=== PATIENT | female | born 1965 | race Caucasian/White ===

== ENCOUNTER 2017-07-21 08:32 | Outpatient (CLI) | payer BC | END 2017-07-21 08:33 | disposition home or self-care (01) | LOC: BICULT 08:32 | PROVIDERS: ATTEND Family Medicine | DX: R79.89 Other specified abnormal findings of blood chemistry (principal); K76.0 Fatty (change of) liver, not elsewhere classified | CPT/HCPCS: 76700 ==

== ENCOUNTER 2019-05-21 08:58 | Observation (INO) | payer BC ==
[2019-05-21] MEDS ORDERED: Ondansetron PF 4 MG/2 ML Vial ONE (10:01)
[2019-05-21] MEDS ORDERED: Morphine 4 MG/ML VIAL ONE ×3 (10:01→15:00)
[2019-05-21] MEDS ORDERED: Ketorolac Tromethamine 30 MG/ML VIAL ONE (10:01)
[2019-05-21] MEDS ORDERED: Diazepam 10 MG/2 ML SYRINGE ONE (10:05)
--- NOTE | 2019-05-21 10:31 | CT ---
CT BRAIN WITHOUT CONTRAST: HISTORY: Left-sided neck pain and spasms radiating to the head FINDINGS: No evidence of acute infarct, hemorrhage, midline shift or abnormal extra-axial fluid collections is seen. The ventricular size is appropriate and the basilar cisterns are patent. The bony calvarium is intact. There is mucosal disease in the paranasal sinuses. IMPRESSION: No CT evidence of acute intracranial process.
[2019-05-21] MEDS ORDERED: diphenhydrAMINE 50 MG/ML VIAL ONE (11:43)
[2019-05-21] MEDS ORDERED: Metoclopramide HCl 10 MG/2 ML VIAL ONE (11:43)
[2019-05-21 12:34] LABS: #Basophils 0.1 thou/uL (0.0-0.2); #Eosinphils 0.2 thou/uL (0.0-0.7); #Monocytes 0.9 thou/uL (0.11-0.59); #Neutrophils 8.4 thou/uL (1.40-6.50); %Basophils 0.7 % (0.0-1.0); %Eosinophils 1.8 % (0.0-10.0); %Lymphocytes 24.1 % (21.0-51.0); %Monocytes 7.1 % (0.0-10.0); %Neutrophils 66.3 % (42.0-75.0); Hemoglobin 14.7 g/dL (12.0-16.0); Mean Corpuscular HGB CONC 35.3 g/dL (32.0-36.0); Mean Corpuscular Volume 96.4 fL (78.0-98.0); Mean Platelet Volume 7.2 fL (7.4-10.4); Platelet Count 363 thou/uL (130-400); RBC Distribution Width 11.4 % (11.5-14.5); Red Blood Cell (RBC) Count 4.32 mill/uL (4.20-5.40); White Blood Cell (WBC) Count 12.6 thou/uL (4.8-10.8)
[2019-05-21] MEDS ORDERED: Indomethacin 75 mg SR Capsule PO SCH (13:15)
[2019-05-21 13:19] LABS: ALT (SGPT) 38 U/L (8-55); AST (SGOT) 48 U/L (5-34); Albumin 4.1 g/dL (3.5-5.0); Alkaline Phosphatase 104 U/L (40-110); Anion Gap 10 mmol/L (10-20); BUN (Urea Nitrogen) 12 mg/dL (9.8-20.1); Bilirubin, Total 0.3 mg/dL (0.2-1.2); Calc. Creatinine Clearance 0 mL/min (70-130); Carbon Dioxide 31 mmol/L (22-29); Chloride 101 mmol/L (98-107); Estimated GFR-MDRD 83; Globulin 2.9 g/dL (2.4-3.5); Glucose 99 mg/dL (70-105); Sodium 139 mmol/L (136-145)
--- NOTE | 2019-05-21 13:26 | CT ---
CT BRAIN WITH CONTRAST: CTA BRAIN WITH AND WITHOUT CONTRAST: CTA NECK WITH CONTRAST: INDICATION: Left sided neck pain, spasm radiating into the head. Symptoms started yesterday. COMPARISON: None. FINDINGS: CT BRAIN Hemorrhage: None. [place]/Infarction: None. Midline Shift: None. Hydrocephalus: None. Skull and Extracranial Soft tissues: Normal. CTA BRAIN Right ICA: Patent. Right MCA: Patent. Right VY: Patent. ACOM: Patent. Left ICA: Patent. Left MCA: Patent. Left VY: Patent. PCOM: Patent. Vertebral arteries: Patent. Basilar Artery: Patent. dehairer: Patent. Incidentals: None. CTA NECK Right CCA: Minimal atherosclerosis in the carotid bifurcation and proximal internal carotid artery. Medial deviation of the common carotid artery causing mass effect upon the supraglottic larynx. Right ICA: Patent. Right Subclavian: Patent. Right Vertebral Artery: Patent. Left CCA: Atherosclerotic plaque in the distal common carotid artery, carotid bifurcation and proxim al internal carotid artery. Left ICA: Patent. Left Subclavian: Patent. Left Vertebral Artery: Patent. Aerodigestive tract: Clear. Parotids/Submandibular/Thyroid glands: Normal. Lymph nodes: No pathologically enlarged lymph nodes. Lung Apices: Patchy ground glass opacities. Bones: No acute osseous abnormality. Incidentals: None. IMPRESSION: No hemodynamically significant stenosis, occlusion or aneurysmal formation. Transcribed Date/Time: 05/21/2019 1:35 PM
[2019-05-21] MEDS ORDERED: Iopamidol-370 76% 500 ML 1 ML ONE (13:48)
[2019-05-21] MEDS ORDERED: Acetaminophen 325 MG TAB PO PRN ×2 (17:13→18:29)
[2019-05-21] MEDS ORDERED: HYDROcodone/Acetaminophen 5/325 mg Tablet PO PRN (17:13)
[2019-05-21] MEDS ORDERED: Morphine 4 MG/ML VIAL SLOW IVP PRN (17:13)
[2019-05-21] MEDS ORDERED: Ondansetron PF 4 MG/2 ML Vial IVP PRN ×2 (17:13→18:29)
[2019-05-21] MEDS ORDERED: Ondansetron ODT 4 MG TAB SL PRN (17:13)
[2019-05-21] MEDS ORDERED: Sodium Chloride 0.9% 1,000 ML IV SCH (17:13)
[2019-05-21 17:26] VITALS: BMI 30.2
[2019-05-21] MEDS: HYDROcodone/Acetaminophen 5/325 mg Tablet PO PRN ×2 (17:40→22:40)
[2019-05-21] MEDS ORDERED: Potassium Chloride 20 MEQ TAB PO SCH (18:15)
[2019-05-21] MEDS ORDERED: Lorazepam 1 MG TAB PO PRN (18:27)
[2019-05-21] MEDS ORDERED: Ondansetron ODT 4 MG TAB PO PRN (18:29)
[2019-05-21] MEDS ORDERED: Acetaminophen 650 MG Suppository PR PRN (18:29)
[2019-05-21] MEDS ORDERED: Nicotine 14 MG PATCH TD SCH (18:30)
[2019-05-21] MEDS ORDERED: Morphine 2 MG/ML SYRINGE SLOW IVP SCH (18:30)
[2019-05-21] MEDS: Sodium Chloride 0.9% 1,000 ML IV SCH (18:55)
[2019-05-21] MEDS ORDERED: Fioricet 325/50/40 mg Tablet PO SCH (19:15)
[2019-05-21 19:19] LABS: #Basophils 0.1 thou/uL (0.0-0.2); #Eosinphils 0.2 thou/uL (0.0-0.7); #Lymphocytes 3.3 thou/uL (1.20-3.40); #Monocytes 0.8 thou/uL (0.11-0.59); #Neutrophils 7.8 thou/uL (1.40-6.50); %Basophils 0.5 % (0.0-1.0); %Eosinophils 1.5 % (0.0-10.0); %Lymphocytes 27.4 % (21.0-51.0); %Monocytes 6.2 % (0.0-10.0); %Neutrophils 64.5 % (42.0-75.0); Hemoglobin 14.5 g/dL (12.0-16.0); Mean Corpuscular HGB CONC 35.2 g/dL (32.0-36.0); Mean Corpuscular Hemoglobin 33.6 pg (27.0-31.0); Mean Corpuscular Volume 95.6 fL (78.0-98.0); Mean Platelet Volume 7.2 fL (7.4-10.4); Platelet Count 367 thou/uL (130-400); RBC Distribution Width 11.4 % (11.5-14.5); Red Blood Cell (RBC) Count 4.32 mill/uL (4.20-5.40); White Blood Cell (WBC) Count 12.1 thou/uL (4.8-10.8)
[2019-05-21 19:39] LABS: Lactic Acid 2.6 mmol/L (0.5-2.2)
[2019-05-21 19:42] LABS: Alcohol Less than 10 mg/dL (Less than 10); Anion Gap 14 mmol/L (10-20); BUN (Urea Nitrogen) 12 mg/dL (9.8-20.1); Calc. Creatinine Clearance 117 mL/min (70-130); Calcium 9.2 mg/dL (7.8-10.44); Carbon Dioxide 27 mmol/L (22-29); Chloride 101 mmol/L (98-107); Estimated GFR-MDRD 80; Glucose 232 mg/dL (70-105); Sodium 139 mmol/L (136-145)
[2019-05-21] MEDS: Famotidine/PF 20 mg/2ml Vial SLOW IVP SCH (20:12)
[2019-05-21 21:04] LABS: Bilirubin Negative (Negative); Blood, Urine Negative (Negative); Clarity Clear (Clear); Glucose, Urine (Dipstick) Normal (Negative); Leukocyte Negative Leu/uL (Negative); Nitrite Negative (Negative); Protein, Urine (Dipstick) 10 mg/dL (Neg-Trace); Urobilinogen Normal mg/dL (Less than 2)
[2019-05-21 21:10] LABS: Amphetamine Not Detected (NotDetected); Barbiturates Screen Not Detected (NotDetected); Benzodiazepine Screen Detected (NotDetected); Cocaine Metabolite Screen Not Detected (NotDetected); Medtox Control Line Valid? VALID (VALID); Medtox Reader # READER 4; Methadone Not Detected (NotDetected); Methamphetamine Not Detected (NotDetected); Opiate Screen Detected (NotDetected); Oxycodone Screen Not Detected (NotDetected); Phencyclidine (PCP) Not Detected (NotDetected); THC/Cannabinoid Screen Not Detected (NotDetected); Tricyclic Screen Not Detected (NotDetected)
[2019-05-21 21:14] LABS: Bacteria/HPF None Seen HPF (None Seen)
[2019-05-21 21:15] LABS: RBC/HPF 0-3 HPF (0-3); Squamous Epithelial 0-3 HPF (0-3); WBC/HPF 0-3 HPF (0-3)
[2019-05-21 21:17] LABS: Urine Culture Reflex No No
--- NOTE | 2019-05-22 01:18 | HP ---
TIME OF ASSESSMENT: 1800 hours. CHIEF COMPLAINT: Left-sided headache. HISTORY OF PRESENT ILLNESS: Ms. Porras is a 53-year-old woman who presents with complaints of severe intermittent headaches lasting seconds at this time since yesterday evening. The patient states she did not have any trauma or injuries and the pain started suddenly, described as "ice pick going through the left side of my head." The patient states that the pain comes on out of nowhere and the longest that has stayed away for today is 30 minutes after she was given morphine in the emergency department. She denies any associated vision changes or speech disturbances. Denies any extremity numbness or weakness. No associated nausea or vomiting. Again, denies any trauma or injuries. Has not experienced any pain like this before and denies any history of migraines. In the emergency department, she had a CT of the head, which showed no acute intracranial process. CT angiogram of the head and neck was done as well, demonstrating no hemodynamically significant stenosis, occlusion, or aneurysmal formation. She was treated with multiple medications in the ER. She received a total of 10 mg of morphine. She was given 75 mg of indomethacin, 10 mg of IV Reglan, 25 mg of IV Benadryl, 30 mg of IV Toradol, 5 mg of IV Valium, and 4 mg of IV Zofran. The patient also given 1 L of normal saline. She had laboratory studiesdone, which showed a white count of 12.6, hemoglobin 14.7, hematocrit 41.7, platelets 363. Renal function unremarkable. Potassium slightly low at 3.0, total bilirubin 0.3, AST 48, ALT 38, albumin 4.1. The patient continues with significant pain. She has had strokes in the past, therefore admitted for further workup and management. The patient reports having sinus pressure last week on and Monday and reports having low-grade temps of 100.1 on and Monday. Has not had any further fever since then. Reports clear drainage from her nose. PAST MEDICAL HISTORY: 1. Stroke x2 in 2013. 2. Nephrolithiasis. 3. Hypertension. 4. Excess alcohol. 5. Tobacco use. PAST SURGICAL HISTORY: Laparoscopic oophorectomy. SOCIAL HISTORY: The patient smokes one pack per day and has been smoking for 30 years. Reports drinking 2-3 glasses of vodka every other day. Denies any history of withdrawal symptoms including seizures. ALLERGIES: NO KNOWN DRUG ALLERGIES. CURRENT MEDICATIONS: 1. Amlodipine. 2. Hydrochlorothiazide. 3. Metoprolol tartrate. PHYSICAL EXAMINATION: GENERAL: The patient appears well developed, well nourished, and is in obvious discomfort. She continues to have sharp pains during her assessment. Her pain appeared to be less frequent when distracted by neuro exam. VITAL SIGNS: Temperature 98.2, pulse 68, respirations 16, O2 saturation 94% on room air, blood pressure 145/90. HEENT: Normocephalic and atraumatic. Pupils are equal, round, and reactive to light. Sclerae without icterus. Extraocular movements intact. Visual raya intact. Oropharynx is clear. She did have some left-sided TMJ discomfort with palpation. Able to open and close her jaw without difficulty. No scalp or temporal region tenderness. No maxillary or frontal sinus tenderness or discomfort on palpation. NECK: Supple. No tenderness to palpation. Full range of motion. LUNGS: Clear to auscultation bilaterally without wheezes, rales, or rhonchi. CARDIAC: Regular rate and rhythm without audible murmurs, rubs, or gallops. ABDOMEN: Soft, nontender, nondistended. Normoactive bowel sounds present. EXTREMITIES: No lower leg swelling or edema. Peripheral pulses are present and equal bilaterally. SKIN: Normal, warm and dry. NEUROLOGIC: Alert and oriented x3. Speech is normal. Facial movements normal. Power 5/5 in all limbs. Sensation intact. No neuro deficits. INVESTIGATIONS: As mentioned above in HPI. IMPRESSION AND PLAN: Ms. Porras is a very pleasant 53-year-old woman presenting with severe intermittent sharp left-sided headaches, admitted for management of the following. 1. Severe headache. CT imaging unremarkable. The patient has been seen discussed and seen by Dr. Gordillo who felt an MRI of the brain would not be necessary given the lack of neuro deficits and unremarkable CT imaging. He advised a neurology consult. We will try Fioricet. Cluster headaches/migraine suspected. 2. Leukocytosis. The patient with recent fever. No nuchal rigidity or stiffness on exam. We will add on lactic acid and procalcitonin. We will obtain urinalysis. 3. Hypertension. Blood pressure under control. We will resume home medications once verified. 4. Excess alcohol. We will initiate LILIAN protocol. Ativan p.r.n. ordered. 5. Tobacco use. The patient requesting nicotine patch. 6. Deep venous thrombosis prophylaxis. Mechanical SCDs. The patient is ambulatory. 7. Gastrointestinal prophylaxis with famotidine. 8. Code status full. Surrogate decision maker is her , Fredrick Porras. Case discussed with Dr. Gordillo who agrees with plan of care as described above. Job ID: [id number]
[2019-05-22] MEDS: Sodium Chloride 0.9% 1,000 ML IV SCH (07:24)
[2019-05-22] MEDS ORDERED: methylPREDNISolone Sod Succ/PF 125 MG/2 ML VIAL IVP SCH (07:45)
--- NOTE | 2019-05-22 07:56 | PDOC.HOSPP ---
- Subjective Encounter Date: 05/22/19 Encounter Time: 07:55 Subjective: cont to complain of 03/14 ice pick stabbing pain in L head and neck - Objective Vital Signs & Weight: Vital Signs (12 hours) Temp Pulse Resp BP BP BP Pulse Ox 05/22/19 05:45 128/76 05/22/19 04:30 97.9 F 72 18 128/76 91 L 05/22/19 01:45 114/69 05/22/19 00:33 98.0 F 67 18 124/73 94 L 05/21/19 20:07 97.7 F 76 18 114/69 92 L Weight Weight 192 lb 11.2 oz I&O: 05/21/19 05/22/19 05/23/19 06:59 06:59 06:59 Intake Total 1450 Balance 1450 Result Diagrams: 05/21/19 19:08 05/21/19 19:08 Hospitalist ROS - Medication Medications: Active Medications Generic Name Dose Route Start Last Admin Trade Name Freq PRN Reason Stop Dose Admin Acetaminophen 650 mg 05/21/19 18:29 05/22/19 05:03 Tylenol PO 650 mg Q4H PRN Administration Headache/Fever/Mild Pain (1-3) Famotidine 20 mg 05/21/19 21:00 05/21/19 20:12 Pepcid SLOW IVP 20 mg Q12HR EDENILSON Administration Sodium Chloride 1,000 mls @ 65 mls/hr 05/21/19 18:30 05/22/19 07:24 Normal Saline 0.9% IV 1,000 mls .[id number] EDENILSON Administration Lorazepam 1 mg 05/21/19 18:27 05/21/19 22:34 Ativan PO 1 mg Q4H PRN Administration Anxiety/Agitation Nicotine 14 mg 05/21/19 18:30 05/21/19 18:53 Nicoderm Patch TD 14 mg Q24HR EDENILSON Administration - Exam General Appearance: awake alert General - other findings: crying ENT: normocephalic atraumatic Neck: no JVD Heart: RRR Respiratory: CTAB Gastrointestinal: soft, normal bowel sounds Extremities: no edema Neurological: cranial nerve grossly intact, no focal deficits Hosp A/P (1) Head and neck cancer Code(s): C76.0 - MALIGNANT NEOPLASM OF HEAD, FACE AND NECK Status: Acute (2) HTN (hypertension) Code(s): I10 - ESSENTIAL (PRIMARY) HYPERTENSION Status: Chronic Qualifiers: Hypertension type: essential hypertension Qualified Code(s): I10 - Essential (primary) hypertension (3) Alcohol abuse Code(s): F10.10 - ALCOHOL ABUSE, UNCOMPLICATED Status: Chronic (4) Tobacco abuse Code(s): Z72.0 - TOBACCO USE Status: Chronic - Plan GRIDER including CT brain, ESR, etc-unrevealing toradol 30 mg q6h prn one dose 125 mg solumedrol
[2019-05-22] MEDS: Ketorolac Tromethamine 30 MG/ML VIAL IVP PRN ×2 (08:41→16:27)
[2019-05-22] MEDS: Famotidine/PF 20 mg/2ml Vial SLOW IVP SCH (08:46)
[2019-05-22] MEDS ORDERED: Aspirin 81 mg Enteric Coated Tablet PO SCH (09:00)
[2019-05-22] MEDS ORDERED: Rosuvastatin 20 MG TAB PO SCH (09:00)
[2019-05-22] MEDS ORDERED: Amlodipine 10 MG TAB PO SCH (09:00)
[2019-05-22] MEDS ORDERED: Hydrochlorothiazide 25 MG TAB PO SCH (09:00)
--- NOTE | 2019-05-22 16:40 | DIS ---
DATE OF ADMISSION: 05/21/2019 DATE OF DISCHARGE: 05/22/2019 PRIMARY CARE PROVIDER: Rod Sandoval MD. DISPOSITION: Discharged home. FINAL DIAGNOSES: 1. Left-sided headache. 2. Nasal congestion. 3. Hypertension. 4. Alcohol abuse. 5. Tobacco abuse. 6. Dyslipidemia. DISCHARGE MEDICINES: She has; 1. Tramadol 50 mg p.o. b.i.d. 2. Rosuvastatin 20 mg a day. 3. Aspirin 81 mg a day. 4. Amlodipine 10 mg a day. 5. Hydrochlorothiazide 12.5 mg a day. ALLERGIES: NO KNOWN DRUG ALLERGIES. DIET: Heart healthy. PENDING AT TIME OF DISCHARGE: Nothing. CODE STATUS: Full. HOSPITAL COURSE: The patient was admitted to the [facility] with what she described as ice pick going to the left side of her head, comes and goes. She was given multiple medications in the emergency room including morphine, indomethacin, Reglan, Benadryl, Toradol, Valium, Zofran, a L of saline. Her workup included a normal neurological exam. Brain CT, no evidence of acute intracranial process. CT [place]; right ICA, right MCA, right VY, ACOM, left ICA, left MCA, left VY patent, vertebral arteries patent, basal artery patent. LABORATORY DATA: White count initially 12.6, repeat today 12.1; hemoglobin 14.7, repeat 14.5; and platelet count 363,000, repeat 367,000; sedimentation rate 34. Comp metabolic profile; sodium 139 and 139, potassium 3.0 and 3.0, chloride 101 and 101. Renal function normal. She does have one lactic acid of 2.6, repeat briefly thereafter 1.3. Magnesium normal 1.7, calcium normal. Procalcitonin 0.07. Urine drug screen showed benzodiazepines and opiates. When I first saw her, she was still describing 10/10 ice pick pain in her head. Gave her 30 mg of Toradol, 125 mg of Solu-Medrol. She is now comfortable. I have advised her to see her PCP in 3 days to take Aleve 2 twice a day, pending seeing him. At discharge, she is neurological intact. Job ID: [id number]
[2019-05-22 16:48] VITALS: BP 141/84; TEMP 97.4
== END 2019-05-22 17:20 | disposition home or self-care (01) ==
LOC: ERS 08:58 → T4-B 15:46
PROVIDERS: ADMIT Internal Medicine; ATTEND Internal Medicine
DX: R51 Headache (principal); D72.829 Elevated white blood cell count, unspecified; I10 Essential (primary) hypertension; F17.210 Nicotine dependence, cigarettes, uncomplicated; F10.10 Alcohol abuse, uncomplicated; Z86.73 Personal history of transient ischemic attack (TIA), and cerebral infarction without residual deficits; Z79.82 Long term (current) use of aspirin; Z79.899 Other long term (current) drug therapy
CPT/HCPCS: 36415; 70450; 70496; 70498; 80053; 80306; 80307; 81001; 83605; 83735; 84145; 85025; 85652; 86140; 96361; 96374; 96375; 96376; G0378; J1200; J1885; J2270; J2405; J2765; J2930; J3360; Q9967; S0028